=== PATIENT | female | born 1960 | race Caucasian/White ===

== ENCOUNTER → 2025-02-28 | Outpatient (CLI) | payer MEDICAID, SELFPAY ==
--- NOTE | 2025-02-28 14:00 | XR_ITS ---
Examination: Bone densitometry Date and time of exam:February 28, 2025 1438 hours INDICATIONS: Menopause age 49, postmenopausal back fracture May 2016, calcium 41 years Technique: Lumbar spine and hip total bone mineralization values of an calculated. Peak reference and age match control results have been displayed. Findings: Lumbar spine total bone mineralization is0.899 gm/cm2. This is 1.8 standard deviations below peak reference. This is 0.1 standard deviations below age-matched controls. Hip total bone mineralization is 0.710 gm/cm2 This is 1.9 standard deviations below peak reference. This is 0.8 standard deviations below age-matched controls Impression: There is osteopenia based on lumbar spine measurements. There is osteoporosis based on hip measurements
== END | disposition home or self-care (01) ==
LOC: CDIM 14:17
PROVIDERS: Referring Provider Nurse Practitioner Family; Visit Provider Nurse Practitioner Family
DX: M81.0 Age-related osteoporosis without current pathological fracture (principal); Z78.0 Asymptomatic menopausal state
CPT/HCPCS: 77080

== ENCOUNTER → 2025-04-06 | Outpatient (CLI) | payer MEDICAID, SELFPAY ==
--- NOTE | 2025-04-06 13:15 | XR_ITS ---
Examination: Screening digital mammography, bilateral Computer aided detection 3-D breast Tomosynthesis, bilateral Date and time of exam: 04/06/2025, 1:29 PM Comparisons: Not available. If prior mammograms can be obtained recommend comparison with today's exam with report addendum. Indications: Screening Technique: Nonmagnified MLO, CC views of the breasts to been obtained, reconstructed from 3-D Tomosynthesis images. R2 computer aided detection program utilized for evaluation of suspicious masses and/or abnormal calcifications. 3-D Tomosynthesis images obtained. Technologist: Findings: There are scattered areas of fibroglandular density. Multiple bilateral benign-appearing oval masses. No evidence of suspicious masses or suspicious calcifications. Impression: BI-RADS category 2: Benign findings Recommend 1 year follow-up mammogram
== END | disposition home or self-care (01) ==
PROVIDERS: PCP Nurse Practitioner Family; Referring Provider Nurse Practitioner Family; Visit Provider Nurse Practitioner Family
DX: Z12.31 Encounter for screening mammogram for malignant neoplasm of breast (principal); R92.323 Mammographic fibroglandular density, bilateral breasts
CPT/HCPCS: 77063; 77067